=== PATIENT | female | born 1950 | race Caucasian/White ===

== ENCOUNTER → 2017-02-10 | Outpatient (CLI) | payer MEDICARE ==
[~2017-02-10] MED LIST: ALBU8.5H3 INH; ALPR0.5T6 PO; ATOR20TA9 PO; BISO5TAB2 PO; BUDE10.2 INH; DULO30CA2 PO; ENOX60SY4 SC; GABA600T2 PO; HYDR-3144 PO; HYDR200T PO; LEVE10007 PO; LIDO700A30 TD; METH750T2 PO; MORP15TA PO; MORP30TA3 PO; PANT40TA5 PO; POLY17PO3 PO; SPIR25TA3 PO; THEO400T2 PO; TIOT18CA INH; WARF4TAB7 PO
[2017-02-10 15:10] LABS: ASPARTATE AMINO TRANSFERASE 29 U/L (15-37); BLOOD UREA NITROGEN 11 mg/dL (7-18)
== END | disposition home or self-care (01) ==
LOC: STAR 13:29
PROVIDERS: ATTEND Internal Medicine Gastroenterology
DX: Z01.818 Encounter for other preprocedural examination (principal); K63.5 Polyp of colon; J44.9 Chronic obstructive pulmonary disease, unspecified; R14.0 Abdominal distension (gaseous); M06.9 Rheumatoid arthritis, unspecified; R79.1 Abnormal coagulation profile
CPT/HCPCS: 36415; 80053; 85025; 85610; 85730; 93005

== ENCOUNTER 2017-02-19 11:20 | Day surgery (SDC) | payer MEDICARE ==
[~2017-02-19] VITALS: Ht 137.2 cm; Wt 46.3 kg
[2017-02-19] MEDS ORDERED: ACETAMINOPHEN 325 MG TABLET PO PRN (12:30)
[2017-02-19] MEDS ORDERED: ALBUTEROL SULFATE 2.5 MG/3 ML NPPB PRN (12:30)
[2017-02-19] MEDS ORDERED: FENTANYL PF 100 MCG/2ML IV PRN (12:30)
[2017-02-19] MEDS ORDERED: PROMETHAZINE 25 MG/ML, 1ML IV PRN (12:30)
[2017-02-19] MEDS ORDERED: OXYcodone 5 MG/5 ML ORAL.SOL UDC PO PRN (12:30)
[2017-02-19] MEDS ORDERED: HYDROmorphone 1 MG/ML, 1ML IV PRN (12:30)
[2017-02-19] MEDS ORDERED: ONDANSETRON 2MG/ML, 2ML IVPush PRN (12:30)
[2017-02-19] MEDS ORDERED: LABETALOL 5MG/ML, 20ML IV PRN (12:30)
[2017-02-19] MEDS ORDERED: hydrALAzine 20 MG/ML, 1ML IV PRN (12:30)
[2017-02-19] MEDS ORDERED: MIDAZOLAM 1 MG/ML, 2ML IV PRN (12:30)
[2017-02-19] MEDS ORDERED: MIDAZOLAM 1 MG/ML, 2ML ONE ×2 (13:00)
[2017-02-19] MEDS ORDERED: FENTANYL PF 250 MCG/5ML ONE (13:00)
[2017-02-19] MEDS ORDERED: FENTANYL PF 100 MCG/2ML ONE (13:00)
[2017-02-19] MEDS ORDERED: LACTATED RINGERS 1,000 ML IV SCH (13:15)
[2017-02-19 13:16] VITALS: BP 103/59
[2017-02-19] MEDS ORDERED: PHENYLEPHRINE 10 MG/ML ONE (13:43)
[2017-02-19] MEDS ORDERED: PROPOFOL 10 MG/ML, 20ML ONE (13:43)
== END 2017-02-19 15:45 | disposition home or self-care (01) ==
LOC: OUT 11:20
PROVIDERS: ATTEND Internal Medicine Gastroenterology
DX: K63.5 Polyp of colon (principal); K62.1 Rectal polyp; J44.9 Chronic obstructive pulmonary disease, unspecified; M06.9 Rheumatoid arthritis, unspecified; F41.9 Anxiety disorder, unspecified; I10 Essential (primary) hypertension; F32.9 Major depressive disorder, single episode, unspecified; G43.909 Migraine, unspecified, not intractable, without status migrainosus; Z86.711 Personal history of pulmonary embolism; F17.210 Nicotine dependence, cigarettes, uncomplicated; Z87.440 Personal history of urinary (tract) infections; Z86.718 Personal history of other venous thrombosis and embolism; Z80.0 Family history of malignant neoplasm of digestive organs
CPT/HCPCS: 36415; 45380; 85610; 88305; J2250; J2370; J2704; J3010; J7120